=== PATIENT | female | born 1970 | race Caucasian/White ===

== ENCOUNTER 2023-01-28 21:02 | Emergency (ER) | payer BC ==
[2023-01-28] MEDS ORDERED: Aspirin 81 MG Tab.Chew PO ONE (21:35)
[2023-01-28 21:44] LABS: BASOPHILS PERCENT AUTO 0.2 % (0.0-1.5); EOSINOPHILS ABSOLUTE AUTO 0.1 K/uL (0.0-0.7); EOSINOPHILS PERCENT AUTO 2.3 % (0.0-7.0); HEMATOCRIT 41.9 % (36.0-46.0); LYMPHOCYTES ABSOLUTE AUTO 2.3 K/uL (0.6-2.4); LYMPHOCYTES PERCENT AUTO 39.1 % (16.0-40.0); MEAN CORPUSCULAR HEMOGLOBIN 30.5 pg (27.0-32.0); MEAN CORPUSCULAR HGB CONC 33.4 g/dL (31.0-37.0); MEAN CORPUSCULAR VOLUME 91.3 fL (80.0-98.0); MONOCYTES ABSOLUTE AUTO 0.4 K/uL (0.0-0.8); MONOCYTES PERCENT AUTO 6.3 % (0.0-15.0); NEUTROPHILS PERCENT AUTO 52.1 % (48.0-80.0); NRBC ABSOLUTE 0 K/uL; PLATELET COUNT,PLT 283 K/uL (150-400); RED BLOOD CELL COUNT 4.59 M/uL (4.30-5.90); WHITE BLOOD CELL COUNT,WBC 5.76 K/uL (4.0-11.0)
[2023-01-28] MEDS ORDERED: LORazepam 2 MG/ML SDV IVPUSH ONE (21:45)
[2023-01-28 22:03] LABS: CALCIUM 9.4 mg/dL (8.5-10.1); CARBON DIOXIDE,CO2 27.2 mmol/L (21.0-32.0); EST CRCL DRUG DOSING (CG) 54.44 mL/min; POTASSIUM,K 3.9 mmol/L (3.5-5.1)
== END 2023-01-29 00:17 | disposition home or self-care (01) ==
LOC: MW.ED 21:02
DX: R07.2 Precordial pain (principal)
CPT/HCPCS: 36415; 71045; 80048; 84484; 85025; 93005; 96374; 99285; A9270; J2060; 93010; 99284

== ENCOUNTER 2023-03-28 20:27 | Emergency (ER) | payer BC ==
[2023-03-28] MEDS ORDERED: Sodium Chloride 0.9% 2.5 ML Syringe FLUSH PRN (20:43)
[2023-03-28] MEDS ORDERED: Metoclopramide 10 MG/2 ML SDV IVPUSH ONE (20:43)
[2023-03-28] MEDS ORDERED: Sodium Chloride 0.9% 10 ML Syringe FLUSH PRN (20:43)
[2023-03-28] MEDS ORDERED: diphenhydrAMINE 50 MG/ML SDV IVPUSH ONE (20:43)
[2023-03-28] MEDS ORDERED: Sodium Chloride 0.9% 1,000 ML IV ONE (20:43)
[2023-03-28 21:07] LABS: BASOPHILS ABSOLUTE AUTO 0.02 K/uL (0.00-0.20); BASOPHILS PERCENT AUTO 0.3 % (0.0-1.0); EOSINOPHILS ABSOLUTE AUTO 0.13 K/uL (0.00-0.45); EOSINOPHILS PERCENT AUTO 2.3 % (0.0-6.0); HEMATOCRIT 39.8 % (37.0-47.0); HEMOGLOBIN 13.6 g/dL (12.0-16.0); IMMATURE GRAN ABSOLUTE AUTO 0.01 K/uL (0.00-0.05); IMMATURE GRAN PERCENT AUTO 0.2 % (0.0-0.4); LYMPHOCYTES ABSOLUTE AUTO 2.09 K/uL (1.00-4.80); LYMPHOCYTES PERCENT AUTO 36.4 % (24.0-44.0); MEAN CORPUSCULAR HEMOGLOBIN 30.2 pg (28.0-32.0); MEAN CORPUSCULAR HGB CONC 34.2 g/dL (32.0-36.0); MEAN CORPUSCULAR VOLUME 88.4 fL (83.0-99.0); MEAN PLATELET VOLUME 10.2 fL (9.4-12.3); MONOCYTES ABSOLUTE AUTO 0.47 K/uL (0.00-0.80); MONOCYTES PERCENT AUTO 8.2 % (0.0-8.0); NEUTROPHILS ABSOLUTE AUTO 3.02 K/uL (1.80-7.70); NEUTROPHILS PERCENT AUTO 52.6 % (41.0-71.0); PLATELET COUNT,PLT 225 K/uL (150-400); WHITE BLOOD CELL COUNT,WBC 5.74 K/uL (3.9-11.3)
[2023-03-28 21:23] LABS: INR 1.1 (0.86-1.11); PTT,PARTIAL THROMBOPLSTIN TIME 30.7 SEC (23.9-30.7)
[2023-03-28 21:33] LABS: A/G RATIO 1.1 (0.9-1.6); BILIRUBIN TOTAL 0.6 mg/dL (0.2-1.0); CALCIUM 9.6 mg/dL (8.5-10.1); CARBON DIOXIDE,CO2 28.7 mmol/L (21.0-32.0); CREATININE 0.8 mg/dL (0.6-1.0); EST CRCL DRUG DOSING (CG) 62.07 mL/min; MAGNESIUM 1.7 mg/dL (1.8-2.4); POTASSIUM,K 3.5 mmol/L (3.5-5.1); PROTEIN TOTAL,TP 7.7 g/dL (6.4-8.2)
== END 2023-03-28 23:40 | disposition home or self-care (01) ==
LOC: MW.ED 20:27
DX: R03.0 Elevated blood-pressure reading, without diagnosis of hypertension (principal); R51.9 Headache, unspecified; M54.2 Cervicalgia; Z90.49 Acquired absence of other specified parts of digestive tract
CPT/HCPCS: 36415; 70450; 71046; 80053; 83735; 84484; 85025; 85610; 85730; 93005; 96374; 96375; 99284; J1200; J2765; J3490; J7030

== ENCOUNTER 2023-04-18 08:57 | Day surgery (SDC) | payer BC, MEDICAID ==
[~2023-04-18 08:57] MED LIST: Lactated Ringers 1,000 ML IV SCH; Sodium Chloride 0.9% 10 ML Syringe FLUSH PRN; Sodium Chloride 0.9% 2.5 ML Syringe FLUSH PRN; Sodium Chloride 0.9% 20 ML SDV IV PRN
[2023-04-18] MEDS ORDERED: Ondansetron 4 MG/2 ML SDV ONE (11:25)
[2023-04-18] MEDS ORDERED: propofoL 50 ML ONE (11:25)
[2023-04-18] MEDS ORDERED: Lidocaine 2% 5 ML SDV ONE (11:37)
[2023-04-18] MEDS ORDERED: Glycopyrrolate 0.2 MG/ML SDV ONE (11:52)
[2023-04-18] MEDS ORDERED: Esmolol 100 MG/10 ML SDV ONE (12:06)
[2023-04-18] MEDS ORDERED: fentaNYL 100 MCG/2 ML SDV ONE (12:06)
== END 2023-04-18 13:18 | disposition home or self-care (01) ==
LOC: MW.SDS 08:57
PROVIDERS: ATTEND Surgery
DX: D12.0 Benign neoplasm of cecum (principal); K29.80 Duodenitis without bleeding; K29.70 Gastritis, unspecified, without bleeding; K57.30 Diverticulosis of large intestine without perforation or abscess without bleeding; I10 Essential (primary) hypertension; E78.00 Pure hypercholesterolemia, unspecified; K21.9 Gastro-esophageal reflux disease without esophagitis; E66.9 Obesity, unspecified; Z68.32 Body mass index [BMI] 32.0-32.9, adult; Z79.899 Other long term (current) drug therapy
CPT/HCPCS: 00813; J2405; J2704; J3010; J3490; J7120